=== PATIENT | male | born 1940 | race Hispanic/Latino ===

== ENCOUNTER 2022-02-19 12:20 | Outpatient (CLI) | payer MEDICARE, MEDICAID, SELFPAY ==
--- NOTE | 2022-02-19 | ECG_ITS ---
Measurements Intervals [place] Rate: 65 P: 41 MA: 176 QRS: -30 QRSD: 130 T: -15 QT: 410 QTc: 429 Interpretive Statements SINUS RHYTHM RIGHT BUNDLE BRANCH BLOCK ABNORMAL ECG Electronically Signed On 02-19-2022 12:58:03 CDT by Jaime Toledo D.O.
--- NOTE | ~2022-02-19 | XR_ITS ---
XR chest 2V DATE: 02/19/2022 13:14 INDICATION: Recent new cough TECHNIQUE: PA and lateral views COMPARISON: None FINDINGS: Bilateral basilar atelectasis and possible mild infiltrate. The lungs otherwise appear jose r. Bilateral apical thinning. Normal heart size. Mild aortic unfolding. No hilar or mediastinal enlargement. No pleural effusion or pulmonary vascular pneumothorax. Diffuse osteopenia. Mild dextroscoliosis of the thoracic spine. IMPRESSION: Bibasilar atelectasis and possible mild infiltrate Reviewed, dictated and finalized at location A.
== END 2022-02-19 12:21 | disposition home or self-care (01) ==
PROVIDERS: PCP Registered Nurse; Visit Provider Registered Nurse
DX: I45.10 Unspecified right bundle-branch block (principal); Z00.00 Encounter for general adult medical examination without abnormal findings
CPT/HCPCS: 71046; 93005

== ENCOUNTER 2022-03-11 11:52 | Emergency (ER) | payer MEDICARE, MEDICAID, SELFPAY ==
[2022-03-11] VITALS (21 sets, daily range): BP systolic 114–132; BP diastolic 73–90; PULSE 59–67; RESP 15–24; TEMP 36.8; O2SAT 94–98
--- NOTE | ~2022-03-11 | XR_ITS ---
EXAMINATION: XR chest 2V DATE: 03/11/2022 12:55 INDICATION: Weakness TECHNIQUE: frontal and lateral views of the chest were obtained. COMPARISON: Chest radiograph dated 02/19/2022 FINDINGS: Persistent mild streaky opacities in the bilateral lower lung zones and favor atelectasis/scarring ov er pneumonia. Additional chronic mild biapical pleural-parenchymal scarring. No pleural effusion or p neumothorax. The cardiomediastinal silhouette is normal. Mild to moderate degenerative skeletal azul es in the upper thoracic spine and bilateral shoulders. IMPRESSION: 1. Persistent mild streaky bibasilar opacities and favor atelectasis over pneumonia. Reviewed, dictated and finalized at location A. IMPRESSION: 1. Persistent mild streaky bibasilar opacities and favor atelectasis over pneum onia.
--- NOTE | ~2022-03-11 | CT_ITS ---
EXAMINATION: CT brain wo con DATE: 03/11/2022 12:51 INDICATION: Vertigo TECHNIQUE: Computed tomography (CT) of the head was performed without intravenous contrast. The mA wa s adjusted according to patient size. Iterative reconstruction technique was employed. Exam dose: 60 5.33 mGy-cm total exam DLP. COMPARISON: None FINDINGS: Bilateral vertebral artery, basilar artery and bilateral carotid siphon and supraclinoid in ternal carotid artery calcifications. Large frontotemporal area of encephalomalacia consistent with old cerebrovascular accident. Smaller right frontal and right anterior temporal infarcts. There is nonspecific diminished attenuation cerebral white matter, likely due to chronic small vessel ischemic changes. No intracranial mass lesion or hemorrhage, midline shift or mass effect. There is central and cortical cerebral and cerebellar atrophy. No subdural or epidural hematoma.. Right occipital bone defect is noted, with thinning and interruption. Of the occipital bone. Recommen d clinical correlation for possible prior surgical intervention at this location. No bone defect is n oted elsewhere at the cranial vault. The mastoid air cells and included paranasal sinuses are unremar kable. 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 Central and cortical cerebral and cerebellar atrophy. No acute intracranial finding Right occipital bone defect; recommend clinical correlation for prior surgical intervention at this l ocation Reviewed, dictated and finalized at Location A. Reviewed, dictated and finalized at location A. 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 Central and cortical cerebral and cerebellar atrophy. No acute intracranial finding Right occipital bone defect; recommend clinical correlation for prior surgical intervention at this location
--- NOTE | 2022-03-11 12:05 | ECG_ITS ---
Measurements Intervals [place] Rate: 66 P: 28 NE: 172 QRS: -21 QRSD: 131 T: -7 QT: 408 QTc: 430 Interpretive Statements SINUS RHYTHM BORDERLINE LEFT AXIS DEVIATION [QRS AXIS < -20] RIGHT BUNDLE BRANCH BLOCK [120+ ms QRS DURATION, UPRIGHT V1, 40+ ms S IN I/aVL/V4/V5/V6] ABNORMAL ECG COMPARED TO ECG 02/19/2022 12:55:36 NO SIGNIFICANT CHANGES Electronically Signed On 03-11-2022 12:29:28 CDT by Petros De La Rosa M.D.
[2022-03-11] MEDS: MECLIZINE HCL 25 MG TABLET PO (12:19)
[2022-03-11] MEDS: ONDANSETRON HCL ODT 4 MG TABLET PO (12:19)
[2022-03-11 12:23] LABS: Basophils Percent Auto 0.3 % (0.2-1.2); Eosinophils Absolute Auto 0.1 K/mm3 (0-0.3); Eosinophils Percent Auto 1.4 % (0-4.4); Hematocrit 45.4 % (42.0-52.0); Hemoglobin 14.8 g/dL (14.0-18.0); Immature Granulocyte Absolute 0.04 K/mm3 (0.00-0.031); Immature Granulocyte Percent A 0.6 % (0-0.5); Lymphocytes Absolute Auto 2.38 K/mm3 (0.9-3.2); Mean Corpuscular HGB Conc 32.6 g/dl (32-36); Mean Corpuscular Hemoglobin 30.6 pg (26-34); Mean Platelet Volume 9.7 fl (7.4-10.4); Monocytes Absolute Auto 0.6 K/mm3 (0.1-0.6); Neutrophils Absolute Auto 3.8 K/mm3 (1.3-6.7); Neutrophils Percent Auto 54.7 % (45.5-73.1); Platelet Count Result 269 k/mm3 (150-375); Red Blood Count 4.83 M/mm3 (4.6-6.20); Red Cell Distribution Width 14.7 % (11.5-14.5)
[2022-03-11 12:36] LABS: Alanine Aminotransferase 23 U/L (6-50); Albumin Level 4.2 g/dL (3.5-5.1); Alkaline Phosphatase 62 U/L (38-126); Anion Gap 7 mmol/L (8-16); Aspartate Amino Transferase 21 U/L (17-59); Bilirubin,Total 0.4 mg/dL (0.2-1.3); Blood Urea Nitrogen 16 mg/dL (9-20); Calcium 8.5 mg/dL (8.4-10.2); Carbon Dioxide 26 mmol/L (22-30); Chloride 109 mmol/L (98-107); Estimated CRCL calculation 70 ml/min; Estimated Glomerular Filt Rate > 60; Glucose 112 mg/dL (65-110); Potassium 4.2 mmol/L (3.4-5.0); Sodium 142 mmol/L (137-145)
[2022-03-11 12:47] LABS: Troponin I < 0.012 ng/mL (0.000-0.034)
--- NOTE | 2022-03-11 13:38 | ED.WEAKNESS ---
HPI - Weakness General Chief complaint: Weakness Stated complaint: dizzy, B/L LE weakness Time Seen by Provider: 03/11/22 11:56 History of Present Illness HPI Narrative: 81-year-old male who states that for the last 2 years, he has had chronic knee pain has been getting worse, to the point where he the last few weeks he feels like his legs are buckling, he also says that he had recently has been diagnosed with sciatica. He also feels for the last 2 weeks he has been having increased vertigo, and nausea. The nausea and vertigo seem to come and go, worse with walking or positions. No fevers or chills, chest pain, difficulty breathing, urinary retention, saddle anesthesia. No midline tenderness. Related Data Allergies Allergy/AdvReac Type Severity Reaction Status Date / Time No Known Allergies Allergy Unverified 07/31/19 13:37 Review of Systems Review of Systems: CONST: No fever. HEENT: Chronic right ear deafness C/V: No chest pain RESP: No cough GI: Reports nausea : No dysuria or urinary retention M/S: Bilateral knee pain SKIN: No rash. NEURO: Vertigo, some bilateral feet numbness PSYCH: [No depression] [facility] Past Medical History Medical History (Updated 03/11/22 @ 14:23 by Yesi Zavala MD) Chronic pain of both knees Sciatica Social History Social History (Updated 03/11/22 @ 17:06 by Yesi Zavala MD) Alcohol intake: current Alcohol use details: very infrequent and small amounts Exam Narrative: EXAMINATION OF ORGAN SYSTEMS/BODY AREAS: Constitutional: Vital signs per nursing GENERAL:[No acute distress, non-toxic appearing.] HEAD: Normal with no signs of head trauma. EYES: EOMI without nystagmus, conjunctiva normal ENT: Some cerumen left ear, normal TMs bilaterally LUNGS: Nonlabored breathing. HEART: [Regular rate and rhythm] ABD: [Soft], [nontender to palpation] EXT: Normal range of motion, good strength with flexion/extension of hip, knee, ankles, however on ambulation patient quite unsteady on his feet SKIN: [No rashes or lesions.] NEURO: [Alert and oriented x 3. No gross focal sensory or strength deficits.] Normal finger to nose bilaterally PSYCH: Normal affect Course Vital Signs Vital signs: Vital Signs Pulse Rate 65 03/11/22 12:11 Respiratory Rate 20 03/11/22 12:11 Temperature 98.2 F 03/11/22 12:23 Pulse Rate 59 L 03/11/22 15:45 Respiratory Rate 16 03/11/22 15:45 Blood Pressure 132/90 03/11/22 15:45 Pulse Oximetry 94 03/11/22 15:45 Oxygen Delivery Room Air 03/11/22 14:33 MDM - Weakness MDM Narrative Medical decision making narrative: 81-year-old male presents here with increasing difficulty ambulating, states that he also has been having intermittent vertigo and is unsteady on his feet due to his bilateral knee pain and recent diagnosis of sciatica. Vital stable, exam shows good strength of bilateral lower extremities and normal neurologic exam, however when I try to ambulate him he does seem quite unsteady on his feet, differential includes BPPV doubt CVA given the intermittent symptoms, possible chronic arthritis, doubt cauda equina without urinary symptoms or saddle anesthesia. Labs and imaging here unremarkable, he is given meclizine and Zofran here and states that the vertigo has resolved, however he is still having difficulty walking due to the weakness in his lower extremities, low concern for any acute fracture given the symptoms since ongoing for the past 2 years, patient would like to go home at this time however I do feel he would benefit from physical therapy as well as outpatient follow-up with MRI, PT/OT and case management will saw the patient here, and were able to provide him with a walker and an evaluation and have him set up for an appointment in the next few days. He is given return precautions and at this time is stable for discharge home. Lab Data Result diagrams: 03/11/22 12:18 03/11/22 12:18 Labs: Lab R
--- NOTE | 2022-03-11 14:01 | PCCCNOTE ---
Addendum entered by Eneida Martinez RN 03/11/22 19:20: Fax'd completed forms for walker to [facility] at [phone] Addendum entered by Eneida Martinez RN 03/11/22 16:38: Met with patient and family at bedside with [employer] [id number] [place], provided instructions about home health starting on Wednesday with [facility] and provided phone number. Bedside TIARRA Chauhan and ED Provider Dr. Zavala updated. Addendum entered by Eneida Martinez RN 03/11/22 16:31: PT/OT recommending home home therapy with a walker, walk[facility] obtained from [facility] and provided to patient, paperwork signed by patient and physician. [facility], Phone call received at [phone], Yesy at [facility] able to accept for skilled therapy for Wednesday. She noted the [place] speaking need and will use a child and family services worker to call patient to set up. Phone number for patient reference [phone], Addendum entered by Eneida Martinez RN 03/11/22 14:31: Met with patient and family at bedside, [employer] utilized for [employer] -Discussed role and request of physician to meet with patient about possible home therapy and possible walker. Advised that physical therapy and occupational therapy would work with the patient and give a recommendation, PT and OT at bedside, translation continued via [employer] for their services await recommendations. Original Note: Phone call received from ED Physician, Dr Zavala, requesting that patient be evaluated by physical therapy for a walker for home and home health physical therapy. Dr. Zavala states that patient does not have medical necessity for admission to the hospital. Called to PT leadDiogo who states that he will have Glenna come down to evaluate.
--- NOTE | 2022-03-11 14:12 | PC.NURSE ---
pt awaiting PT consult.
== END 2022-03-11 16:25 | disposition home or self-care (01) ==
PROVIDERS: Emergency Provider Emergency Medicine; PCP Registered Nurse
DX: M25.562 Pain in left knee (principal); M25.561 Pain in right knee; G89.29 Other chronic pain; M54.30 Sciatica, unspecified side; R42 Dizziness and giddiness; R94.31 Abnormal electrocardiogram [ECG] [EKG]
CPT/HCPCS: 36415; 70450; 71046; 80053; 84484; 85025; 93005; 97161; 97165; 99284; A9270

== ENCOUNTER 2024-03-20 13:00 | Outpatient (CLI) | payer MEDICARE, MEDICAID, SELFPAY | END 2024-03-20 13:01 | disposition home or self-care (01) | LOC: ANHAUDASC 13:01 | PROVIDERS: PCP Registered Nurse; Visit Provider Otolaryngology | DX: H90.3 Sensorineural hearing loss, bilateral (principal); H93.11 Tinnitus, right ear; H61.23 Impacted cerumen, bilateral | CPT/HCPCS: 92553; 92555; 92567 ==

== ENCOUNTER 2024-10-12 12:00 | Outpatient (CLI) | payer MEDICARE, MEDICAID, SELFPAY ==
--- NOTE | 2024-10-12 | ECG_ITS ---
Test Date: 2024-10-12 13:19:18 Measurements Intervals [place] Rate: 66 P: 3 [place]: 168 QRS: 97 QRSD: 126 T: 77 QT: 407 QTc: 428 Interpretive Statements SINUS RHYTHM RIGHT BUNDLE BRANCH BLOCK [120+ ms QRS DURATION, UPRIGHT V1, 40+ ms S IN I/aVL/V4/V5/V6] No previous ECG available for comparison Electronically Signed On 10-12-2024 15:20:33 [employer] by Jose Toure M.D.
--- NOTE | ~2024-10-12 | XR_ITS ---
EXAMINATION: XR chest 2V DATE: 10/12/2024 13:57 INDICATION: Dizziness and giddiness TECHNIQUE: PA and lateral views of the chest were obtained. COMPARISON: Chest radiograph dated 03/11/2022 FINDINGS: Opacities at the bilateral lung bases which could represent atelectasis or pneumonia. The cardiomedia stinal silhouette is normal. Visualized bones and soft tissues are unremarkable. IMPRESSION: 1. Opacities at the bilateral lung bases which could represent atelectasis or pneumonia. Reviewed, dictated and finalized at location B. [place] IMPRESSION: 1. Opacities at the bilateral lung bases which could represent atelectasis or p neumonia.
--- OUTSIDE RECORDS SUMMARY | 2024-10-19 03:15 | XMS_ITS | Data Portability ---
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 Plan of Treatment Reminders Order Date Submit Date Provider Last Modified By Organization Details Last Modified Time Details Appointments None recorde d. Lab gastroi ntestin al pathoge ns panel, culture , stool 2022 023 JANA [facility], [address], [address], [place], [address], 3 12:10:03 urinaly sis, complet e 2023 024 [facility], [address], [address], [place], [address], 4 10:54:25 lipid panel, serum [address] [facility] [facility], [address], [address], [place], [address], 4 10:54:03 CMP, serum or plasma 2023 024 [employer] [facility], [address], [address], [place], [address], 4 10:54:09 CBC w/ auto diff 2023 024 [facility], [address], [address], [place], [address], 4 10:54:14 TSH, ultra-s ensitiv e, serum 2023 024 nataliefort [employer] [facility], [address], [address], [place], [address], 4 10:54:19 HbA1c (hemogl obin A1c), blood 2023 024 [facility], [address], [address], [place], [address], 4 10:54:30 urinaly sis, complet e 2023 024 [facility], [address], [address], [place], [address], 4 15:21:19 lipid panel, serum 2023 024 alvarado [facility], [address], [address], [place], [address], 4 15:21:19 CMP, serum or plasma 2023 024 yaly [facility], [address], [address], [place], [address], 4 15:21:19 CBC w/ auto diff 2023 024 yarauz [facility], [address], [place], [address], 4 15:21:19 TSH, ultra-s ensitiv e, serum 2023 024 alvarado [facility], [address], [address], [place], [address], 4 15:21:19 HbA1c (hemogl obin A1c), blood 2023 024 alvarado [facility], [address], [address], [place], [address], 4 15:21:[address] referra l - 83 y/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 Surgeries None recorde d. Imaging XR, chest, 1 view 2023 024 [facility], [address] [place] [address], [address], 5 14:45:18 electro cardiog leah 2023 024 [facility], [address] [place] [address] [address], [address], 5 10:16:50 Medication Orders None recorde d. Patient TargetsNo targets recorded. Patient Instructions Encounter Date Encounter Id Patient Instructions Last Modified By Organization Details Last Modified Time 07/14/2023 [id number] Cuando desea baj ar de peso: Instrucciones de cuidado - [When You Want to Lose Weight: Care Instructions] [email or web address] Not available 07/14/2023 13:15:31 A healthy lifestyle: care instructions [email or web address] Not available 07/14/2023 13:15:31 P??rdida de la audici??n: instrucciones de cuidado - [hearing loss: care instructions] [email or web address] Not available 07/14/2023 13:15:31 hearing loss referral given yarauz Not available 07/14/2023 13:13:30 08/09/2024 [id number] vacuna contra la influenza (gripe): instrucciones de cuidado - [influenza (flu) vaccine: care instructions] [email or web address] Not available 08/09/2024 13:11:52 bloqueos card??acos: instrucciones de cuidado - [heart blocks: care instructions] [email or web address] Not available 08/09/2024 13:11:52 A healthy lifestyle: care instructions [email or web address] Not available 08/09/2024 13:10:29 P??rdida de la audici??n: instrucciones de cuidado - [hearing loss: care instructions] [email or web address] Not available 08/09/2024 13:10:29 mareos: instrucciones de cuidado - [dizziness: care instructions] [email or web address] Not available 08/09/2024 13:11:52 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, Encounter Date: 08/09/2024 Baker Apprentice Referral fo r Hearing loss Hearing loss Referring Physician: Annie Cortes [facility], Encounter Date: 08/09/2024 Results Created Date Observation Date Name Description Value Unit Range Abnormal Flag Note LastModifiedBy Organization Detail LastModifiedTime 03/03/2003/03/2023 LIPID PANEL cholesterol, total 148.9 mg/dL 140.0- 200.0 Not Available [facility] [address] [place], [address], 03/03/2023 22:07:27 03/03/20 23 03/03/2023 LIPID PANEL triglyceride s 195 mg/dL <=150 above high normal Not Available [facility] [address] [place], [address], 03/03/2023 22:07:27 03/03/20 23 03/03/2023 LIPID PANEL HDL cholesterol 29.0 mg/dL 40.0-1 00.0 below low normal Not Available [facility] [address] [place], [address], 03/03/2023 22:07:27 03/03/20 23 03/03/2023 LIPID PANEL VLDL cholesterol mike 39.00 mg/dL 5.00-4 0.00 Not Available [facility] [address] [place], [address], 03/03/2023 22:07:27 03/03/20 23 03/03/2023 LIPID PANEL LDL chol calc ([facility]) 86.4 mg/dL 0.0-99 .0 Not Available [facility] [address] [place], [address], 03/03/2023 22:07:27 03/03/20 23 03/03/2023 COMP. METAB OLIC PANEL (14) glucose 104 mg/dL 65-99 above high normal ANION GP 16.0 mmol/ L N OSMOL 281.0 mOsM/ L N REFER ENCE RANGE : 275.0 -301. 0 Not Available [facility] [address] [place], [address], 03/03/2023 22:07:28 03/03/20 23 03/03/2023 COMP. METAB OLIC PANEL (14) BUN 15 mg/dL 8-26 Not Available [facility] [address] [place], [address], 03/03/2023 22:07:28 03/03/20 23 03/03/2023 COMP. METAB OLIC PANEL (14) creatinine 0.95 mg/dL 0.50-1 .40 Not Available [facility] [address] [place], [address], 03/03/2023 22:07:28 03/03/20 23 03/03/2023 COMP. METAB OLIC PANEL (14) eGFR 81 mL/mi n/1.7 3 >=60 Not Available [facility] [address] [place], [address], 03/03/2023 22:07:28 03/03/20 23 03/03/2023 COMP. METAB OLIC PANEL (14) BUN/creatini ne ratio 16.0 Not Available [facility] Department [address] [place], [address], 03/03/2023 22:07:28 03/03/20 23 03/03/2023 COMP. METAB OLIC PANEL (14) sodium 140.0 mmol/ L 136.0- 144.0 Not Available [facility] Department [address] [place], [address], 03/03/2023 22:07:28 03/03/20 23 03/03/2023 COMP. METAB OLIC PANEL (14) potassium 4.2 mmol/ L 3.5-5. 3 Not Available [facility] [address] [place], [address], 03/03/2023 22:07:28 03/03/20 23 03/03/2023 COMP. METAB OLIC PANEL (14) chloride 104 mmol/ l 101-11 1 Not Available [facility] [address] [place], [address], 03/03/2023 22:07:28 03/03/20 23 03/03/2023 COMP. METAB OLIC PANEL (14) carbon dioxide, total 23.4 mmol/ L 21.0-3 2.0 Not Available [facility] [address] [place], [address], 03/03/2023 22:07:28 03/03/20 23 03/03/2023 COMP. METAB OLIC PANEL (14) calcium 8.9 mg/dL 8.2-10 .0 Not Available [facility] Department [address] [place] [address], [address], 03/03/2023 22:07:28 03/03/20 23 03/03/2023 COMP. METAB OLIC PANEL (14) protein, total 6.9 g/dL 6.7-8. 2 Not Available [facility] [address] [place], [address], 03/03/2023 22:07:28 03/03/20 23 03/03/2023 COMP. METAB OLIC PANEL (14) albumin 4.0 g/dL 3.5-5. 5 Not Available [facility] [address] [place], [address], 03/03/2023 22:07:28 03/03/20 23 03/03/2023 COMP. METAB OLIC PANEL (14) globulin, total 2.9 g/dL 1.5-4. 5 Not Available [facility] [address] [place], [address], 03/03/2023 22:07:28 03/03/20 23 03/03/2023 COMP. METAB OLIC PANEL (14) A/G ratio 1.0 Not Available [facility] Department [address] [place], [address], 03/03/2023 22:07:28 03/03/20 23 03/03/2023 COMP. METAB OLIC PANEL (14) bilirubin, total 0.3 mg/dL 0.0-1. 2 Not Available [facility] [address] [place], [address], 03/03/2023 22:07:28 03/03/20 23 03/03/2023 COMP. METAB OLIC PANEL (14) alkaline phosphatase 70.7 IU/L 42.0-1 21.0 Not Available [facility] [address] [place], [address], 03/03/2023 22:07:28 03/03/20 23 03/03/2023 COMP. METAB OLIC PANEL (14) AST (SGOT) 16.2 U/L 10.0-4 2.0 Not Available [facility] [address] [place], [address], 03/03/2023 22:07:28 03/03/20 23 03/03/2023 COMP. METAB OLIC PANEL (14) ALT (SGPT) 15.9 U/L 10.0-6 0.0 Not Available [facility] [address] [place], [address], 03/03/2023 22:07:28 03/03/20 23 03/03/2023 URINA LYSIS , COMPL ETE specific gravity Commen t 1.001- 1.035 >=1.0 30 Not Available [facility] [address] [place], [address], 03/03/2023 22:07:29 03/03/20 23 03/03/2023 URINA LYSIS , COMPL ETE pH 5.5 5.0-7. 0 Not Available [facility] [address] [place], [address], 03/03/2023 22:07:29 03/03/20 23 03/03/2023 URINA LYSIS , COMPL ETE urine-color YELLOW yellow Not Available [facility] Department [address], [place], [address], 03/03/2023 22:07:29 03/03/20 23 03/03/2023 URINA LYSIS , COMPL ETE appearance CLEAR Not Available [facility] [address], [place], [address], 03/03/2023 22:07:29 03/03/20 23 03/03/2023 URINA LYSIS , COMPL ETE WBC esterase Commen t NEGAT AURELIA Not Available [facility] Department [address], [place], [address], 03/03/2023 22:07:29 03/03/20 23 03/03/2023 URINA LYSIS , COMPL ETE protein Commen t NEGAT AURELIA Not Available [facility] Department [address], [place], [address], 03/03/2023 22:07:29 03/03/20 23 03/03/2023 URINA LYSIS , COMPL ETE glucose Commen t NEGAT AURELIA Not Available [facility] [address], [place], [address], 03/03/2023 22:07:29 03/03/20 23 03/03/2023 URINA LYSIS , COMPL ETE ketones TRACE abnormal Not Available [facility] Department [address], [place], [address], 03/03/2023 22:07:29 03/03/20 23 03/03/2023 URINA LYSIS , COMPL ETE occult blood Commen t NEGAT AURELIA Not Available [facility] Department [address], [place], [address], 03/03/2023 22:07:29 03/03/20 23 03/03/2023 URINA LYSIS , COMPL ETE bilirubin Commen t NEGAT AURELIA Not Available [facility] [address] [place], [address], 03/03/2023 22:07:29 03/03/20 23 03/03/2023 URINA LYSIS , COMPL ETE urobilinogen ,semi-qn 0.2 eu/dL <=1.0 Not Available [facility] Department [address] [facility], [place], [address], 03/03/2023 22:07:29 03/03/20 23 03/03/2023 URINA LYSIS , COMPL ETE nitrite, urine Commen t negati ve NEGAT AURELIA Not Available [facility] Department [address] [place], [address], 03/03/2023 22:07:29 03/03/20 23 03/03/2023 CBC WITH DIFFE RENTI AL/PL ATELE T WBC 8.4 K/uL 3.4-10 .8 Not Available [facility] [address] [place], [address], 03/03/2023 22:07:29 03/03/20 23 03/03/2023 CBC WITH DIFFE RENTI AL/PL ATELE T RBC 4.8 M/uL 4.5-6. 3 Not Available [facility] [address] [place], [address], 03/03/2023 22:07:29 03/03/20 23 03/03/2023 CBC WITH DIFFE RENTI AL/PL ATELE T hemoglobin 14.2 g/dL 13.5-1 7.5 Not Available [facility] [address] [place], [address], 03/03/2023 22:07:29 03/03/20 23 03/03/2023 CBC WITH DIFFE RENTI AL/PL ATELE T hematocrit 44.9 % 40.0-5 2.0 Not Available [facility] [address] [place], [address], 03/03/2023 22:07:29 03/03/20 23 03/03/2023 CBC WITH DIFFE RENTI AL/PL ATELE T MCV 94 fL 80-95 Not Available [facility] [address] [place], [address], 03/03/2023 22:07:29 03/03/20 23 03/03/2023 CBC WITH DIFFE RENTI AL/PL ATELE T MCH 30 pg 27-32 Not Available [facility] [address] [place], [address], 03/03/2023 22:07:29 03/03/20 23 03/03/2023 CBC WITH DIFFE RENTI AL/PL ATELE T MCHC 32 g/dL 32-36 Not Available [facility] [address] [place], [address], 03/03/2023 22:07:29 03/03/20 23 03/03/2023 CBC WITH DIFFE RENTI AL/PL ATELE T RDW 13.9 % 11.5-1 4.5 Not Available [facility] [address] [place], [address], 03/03/2023 22:07:29 03/03/20 23 03/03/2023 CBC WITH DIFFE RENTI AL/PL ATELE T platelets 299 K/uL 155-37 9 MPV 10.3 FL 8.9-1 2.7 N Not Available [facility] [address] [place], [address], 03/03/2023 22:07:29 03/03/20 23 03/03/2023 CBC WITH DIFFE RENTI AL/PL ATELE T neutrophils 58.4 % 40.0-7 4.0 Not Available [facility] [address] [place], [address], 03/03/2023 22:07:29 03/03/20 23 03/03/2023 CBC WITH DIFFE RENTI AL/PL ATELE T lymphs 30.6 % 14.0-4 6.0 Not Available [facility] [address] [place], [address], 03/03/2023 22:07:29 03/03/20 23 03/03/2023 CBC WITH DIFFE RENTI AL/PL ATELE T monocytes 8.9 % 4.0-12 .0 Not Available [facility] [address] [place], [address], 03/03/2023 22:07:29 03/03/20 23 03/03/2023 CBC WITH DIFFE RENTI AL/PL ATELE T eos 1 % 0-5 Not Available [facility] [address] [place], [address], 03/03/2023 22:07:29 03/03/20 23 03/03/2023 CBC WITH DIFFE RENTI AL/PL ATELE T basos 0.1 % 0.0-1. 0 Not Available [facility] [address] [place], [address], 03/03/2023 22:07:29 03/03/20 23 03/03/2023 CBC WITH DIFFE RENTI AL/PL ATELE T neutrophils (absolute) 4.9 K/uL 1.4-7. 0 Not Available [facility] Department [address] [place], [address], 03/03/2023 22:07:29 03/03/20 23 03/03/2023 CBC WITH DIFFE RENTI AL/PL ATELE T lymphs (absolute) 2.6 K/uL 0.7-3. 1 Not Available [facility] Department [address] [place], [address], 03/03/2023 22:07:29 03/03/20 23 03/03/2023 CBC WITH DIFFE RENTI AL/PL ATELE T monocytes(ab solute) 0.7 K/uL 0.1-0. 9 Not Available [facility] Department [address] [place], [address], 03/03/2023 22:07:29 03/03/20 23 03/03/2023 CBC WITH DIFFE RENTI AL/PL ATELE T eos (absolute) 0.1 K/uL 0.0-0. 4 Not Available [facility] Department [address] [place], [address], 03/03/2023 22:07:29 03/03/20 23 03/03/2023 CBC WITH DIFFE RENTI AL/PL ATELE T baso (absolute) 0.0 K/uL 0.0-0. 3 Not Available [facility] Department [address] [place] [address], [address], 03/03/2023 22:07:29 03/03/20 23 03/03/2023 CBC WITH DIFFE RENTI AL/PL ATELE T immature granulocytes 0.6 % Not Available [facility] Department [address] [place], [address], 03/03/2023 22:07:29 03/03/20 23 03/03/2023 CBC WITH DIFFE RENTI AL/PL ATELE T immature grans (abs) 0.1 K/uL Not Available [facility] Department [address] [place], [address], 03/03/2023 22:07:29 03/03/20 23 03/03/2023 CBC WITH DIFFE RENTI AL/PL ATELE T NRBC 0 % Not Available [facility] [address] [place], [address], 03/03/2023 22:07:29 03/03/20 23 03/04/2023 HEMOG LOBIN A1C hemoglobin A1C 5.9 % 4.8-5. 6 above high normal Predi abete s: 5.7 - 6.4 Diabe liz: >6.4 Glyce jake contr ol for adult s with diabe liz: <7.0 Not Available [facility] ([facility]) [address], [place], [address], 03/04/2023 17:09:34 03/03/20 23 03/04/2023 TSH TSH 3.010 uIU/m L 0.450- 4.500 Not Available [facility] ([facility]) [address] [facility], [place], [address], 03/04/2023 17:09:35 03/03/20 23 03/03/2023 MICRO SCOPI C EXAMI NATIO N WBC 0-5 Not Available [facility] Department [address] [place] [address], [address], 03/03/2023 22:07:28 03/03/20 23 03/03/2023 MICRO SCOPI C EXAMI NATIO N RBC 0-2 Not Available [facility] Department [address] [place], [address], 03/03/2023 22:07:28 03/03/20 23 03/03/2023 MICRO SCOPI C EXAMI NATIO N epithelial cells (non renal) 1+ Not Available [facility] Department [address] [place], [address], 03/03/2023 22:07:28 03/03/20 23 03/03/2023 MICRO SCOPI C EXAMI NATIO N bacteria TRACE abnormal Not Available [facility] Department [address] [place] [address], [address], 03/03/2023 22:07:28 03/12/20 23 03/13/2023 STOOL CULTU RE salmonella/s higella screen - Test not perfo rmed. No stool cultu re trans port devic e recei rocio. Not Available [facility] ([facility]) [address] [facility] [facility], [place], [address], 03/13/2023 12:10:03 03/12/20 23 03/13/2023 STOOL CULTU RE campylobacte r culture - Test not perfo rmed. No stool cultu re trans port devic e recei rocio. Not Available [facility] ([facility]) [address] [place], [address], 03/13/2023 12:10:03 03/12/20 23 03/13/2023 STOOL CULTU RE E coli shiga toxin EIA - Test not perfo rmed. No stool cultu re trans port devic e recei rocio. Not Available [facility] ([facility]) [address] [place], [address], 03/13/2023 12:10:03 03/12/20 23 03/13/2023 SPECI MEN STATU S REPOR T specimen status report TNP Test not perfo rmed. No stool cultu re trans port devic e recei rocio. TEST: [id number] Stool Cultu re Not Available [facility] ([facility]) [address] [place], [address], 03/13/2023 12:10:02 08/10/20 24 08/11/2024 LIPID PANEL cholesterol, total 174 mg/dL 100-19 9 Not Available [facility] ([facility]) [address] [place], [address], 08/11/2024 08:30:07 08/10/20 24 08/11/2024 LIPID PANEL triglyceride s 138 mg/dL 0-149 Not Available [facility] ([facility]) [address] [place], [address], 08/11/2024 08:30:07 08/10/20 24 08/11/2024 LIPID PANEL HDL cholesterol 33 mg/dL >39 below low normal Not Available [facility] ([facility]) [address] [place], [address], 08/11/2024 08:30:07 08/10/20 24 08/11/2024 LIPID PANEL VLDL cholesterol mike 25 mg/dL 5-40 Not Available [facility] ([facility]) [address] [place], [address], 08/11/2024 08:30:07 08/10/20 24 08/11/2024 LIPID PANEL LDL chol calc ([facility]) 116 mg/dL 0-99 above high normal Not Available [facility] ([facility]) [address] [place], [address], 08/11/2024 08:30:07 08/10/20 24 08/11/2024 COMP. METAB OLIC PANEL (14) glucose 92 mg/dL 70-99 Not Available [facility] ([facility]) [address] [place], [address], 08/11/2024 08:30:08 08/10/20 24 08/11/2024 COMP. METAB OLIC PANEL (14) BUN 14 mg/dL 8-27 Not Available [facility] ([facility]) [address] [place], [address], 08/11/2024 08:30:08 08/10/20 24 08/11/2024 COMP. METAB OLIC PANEL (14) creatinine 0.93 mg/dL 0.76-1 .27 Not Available [facility] ([facility]) [address] [place], [address], 08/11/2024 08:30:08 08/10/20 24 08/11/2024 COMP. METAB OLIC PANEL (14) eGFR 82 mL/mi n/1.7 3 >59 Not Available [facility] ([facility]) [address] [place], [address], 08/11/2024 08:30:08 08/10/20 24 08/11/2024 COMP. METAB OLIC PANEL (14) BUN/creatini ne ratio 15 10-24 Not Available [facility] ([facility]) [address] [facility] [place], [address], 08/11/2024 08:30:08 08/10/20 24 08/11/2024 COMP. METAB OLIC PANEL (14) sodium 140 mmol/ L 134-14 4 Not Available [facility] ([facility]) [address] [place], [address], 08/11/2024 08:30:08 08/10/20 24 08/11/2024 COMP. METAB OLIC PANEL (14) potassium 4.4 mmol/ L 3.5-5. 2 Not Available [facility] ([facility]) [address] [place], [address], 08/11/2024 08:30:08 08/10/20 24 08/11/2024 COMP. METAB OLIC PANEL (14) chloride 104 mmol/ L 96-106 Not Available [facility] ([facility]) [address] [place], [address], 08/11/2024 08:30:08 08/10/20 24 08/11/2024 COMP. METAB OLIC PANEL (14) carbon dioxide, total 24 mmol/ L 20-29 Not Available [facility] ([facility]) [address] [facility] [place], [address], 08/11/2024 08:30:08 08/10/20 24 08/11/2024 COMP. METAB OLIC PANEL (14) calcium 8.8 mg/dL 8.6-10 .2 Not Available [facility] ([facility]) [address] [facility] [place], [address], 08/11/2024 08:30:08 08/10/20 24 08/11/2024 COMP. METAB OLIC PANEL (14) protein, total 7.2 g/dL 6.0-8. 5 Not Available [facility] ([facility]) [address] [facility], [place], [address], 08/11/2024 08:30:08 08/10/20 24 08/11/2024 COMP. METAB OLIC PANEL (14) albumin 4.2 g/dL 3.7-4. 7 Not Available [facility] ([facility]) [address], [place], [address], 08/11/2024 08:30:08 08/10/20 24 08/11/2024 COMP. METAB OLIC PANEL (14) globulin, total 3.0 g/dL 1.5-4. 5 Not Available [facility] ([facility]) [address] [place], [address], 08/11/2024 08:30:08 08/10/20 24 08/11/2024 COMP. METAB OLIC PANEL (14) bilirubin, total 0.7 mg/dL 0.0-1. 2 Not Available [facility] ([facility]) [address], [place], [address], 08/11/2024 08:30:08 08/10/20 24 08/11/2024 COMP. METAB OLIC PANEL (14) alkaline phosphatase 84 IU/L 44-121 Not Available [facility] ([facility]) [address] [place], [address], 08/11/2024 08:30:08 08/10/20 24 08/11/2024 COMP. METAB OLIC PANEL (14) AST (SGOT) 20 IU/L 0-40 Not Available [facility] ([facility]) [address] [place], [address], 08/11/2024 08:30:08 08/10/20 24 08/11/2024 COMP. METAB OLIC PANEL (14) ALT (SGPT) 26 IU/L 0-44 Not Available [facility] ([facility]) [address] [place], [address], 08/11/2024 08:30:08 08/10/20 24 08/11/2024 MICRO SCOPI C EXAMI NATIO N WBC 0-5 /hpf 0-5 Not Available [facility] ([facility]) [address] [facility], [place], [address], 08/11/2024 08:30:09 08/10/20 24 08/11/2024 MICRO SCOPI C EXAMI NATIO N RBC 0-2 /hpf 0-2 Not Available [facility] ([facility]) [address] [facility], [place], [address], 08/11/2024 08:30:09 08/10/20 24 08/11/2024 MICRO SCOPI C EXAMI NATIO N epithelial cells (non renal) None seen /hpf 0-10 Not Available [facility] ([facility]) [address] [facility], [place], [address], 08/11/2024 08:30:09 08/10/20 24 08/11/2024 MICRO SCOPI C EXAMI NATIO N casts None seen /lpf nonese en Not Available [facility] ([facility]) [address] [facility], [place], [address], 08/11/2024 08:30:09 08/10/20 24 08/11/2024 MICRO SCOPI C EXAMI NATIO N bacteria None seen nonese en/few Not Available [facility] ([facility]) [address] [facility], [place], [id number], 08/11/2024 08:30:09 08/10/20 24 08/11/2024 HEMOG LOBIN A1C hemoglobin A1C 6.0 % 4.8-5. 6 above high normal Predi abete s: 5.7 - 6.4 Diabe liz: >6.4 Glyce jake contr ol for adult s with diabe liz: <7.0 Not Available [facility] ([facility]) [address] [facility], [place], [id number], 08/11/2024 08:30:10 08/10/20 24 08/11/2024 URINA LYSIS , COMPL ETE specific gravity 1.020 1.005- 1.030 Not Available [facility] ([facility]) [address] [facility], [place], [place], [address], 08/11/2024 08:30:11 08/10/20 24 08/11/2024 URINA LYSIS , COMPL ETE pH 5.5 5.0-7. 5 Not Available [facility] ([facility]) [address] [facility], [place], [address], 08/11/2024 08:30:11 08/10/2008/11/2024 URINA LYSIS , COMPL ETE urine-color YELLOW yellow Not Available [facility] ([facility]) [address] [facility], [place], [address], 08/11/2024 08:30:11 08/10/20 24 08/11/2024 URINA LYSIS , COMPL ETE appearance CLEAR clear Not Available [facility] ([facility]) [address] [place], [address], 08/11/2024 08:30:11 08/10/20 24 08/11/2024 URINA LYSIS , COMPL ETE WBC esterase 1+ negati ve abnormal Not Available [facility] ([facility]) [address] [place], [address], 08/11/2024 08:30:11 08/10/20 24 08/11/2024 URINA LYSIS , COMPL ETE protein NEGATI VE negati ve/tra ce Not Available [facility] ([facility]) [address] [place], [address], 08/11/2024 08:30:11 08/10/20 24 08/11/2024 URINA LYSIS , COMPL ETE glucose NEGATI VE negati ve Not Available [facility] ([facility]) [address] [place], [address], 08/11/2024 08:30:11 08/10/20 24 08/11/2024 URINA LYSIS , COMPL ETE ketones NEGATI VE negati ve Not Available [facility] ([facility]) [address] [place], [address], 08/11/2024 08:30:11 08/10/20 24 08/11/2024 URINA LYSIS , COMPL ETE occult blood NEGATI VE negati ve Not Available [facility] ([facility]) [address] [place], [address], 08/11/2024 08:30:11 08/10/20 24 08/11/2024 URINA LYSIS , COMPL ETE bilirubin NEGATI VE negati ve Not Available [facility] ([facility]) [address] [place], [address], 08/11/2024 08:30:11 08/10/20 24 08/11/2024 URINA LYSIS , COMPL ETE urobilinogen ,semi-qn 0.2 mg/dL 0.2-1. 0 Not Available [facility] ([facility]) [address] [place], [address], 08/11/2024 08:30:11 08/10/20 24 08/11/2024 URINA LYSIS , COMPL ETE nitrite, urine NEGATI VE negati ve Not Available [facility] ([facility]) [address] [place], [address], 08/11/2024 08:30:11 08/10/20 24 08/11/2024 URINA LYSIS , COMPL ETE microscopic examination SEE BELOW: Micro scopi c was indic ated and was perfo rmed. Not Available [facility] ([facility]) [address] [place], [address], 08/11/2024 08:30:11 08/10/20 24 08/11/2024 TSH TSH 2.560 uIU/m L 0.450- 4.500 Not Available [facility] ([facility]) [address] [place], [address], 08/11/2024 08:30:13 08/10/20 24 08/11/2024 CBC WITH DIFFE RENTI AL/PL ATELE T WBC 8.8 x10e3 /uL 3.4-10 .8 Not Available [facility] ([facility]) [address] [place], [address], 08/11/2024 08:30:14 08/10/20 24 08/11/2024 CBC WITH DIFFE RENTI AL/PL ATELE T RBC 5.02 x10e6 /uL 4.14-5 .80 Not Available [facility] ([facility]) [address] [place], [address], 08/11/2024 08:30:14 08/10/20 24 08/11/2024 CBC WITH DIFFE RENTI AL/PL ATELE T hemoglobin 15.5 g/dL 13.0-1 7.7 Not Available [facility] ([facility]) [address] [place], [address], 08/11/2024 08:30:14 08/10/20 24 08/11/2024 CBC WITH DIFFE RENTI AL/PL ATELE T hematocrit 47.0 % 37.5-5 1.0 Not Available [facility] ([facility]) [address] [place], [address], 08/11/2024 08:30:14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 is not tasking any medications.He agrees to influenza vaccination. Has no contraindications. JT Zhou Attn: [address] [place], [address], [facility] 08/09/2024 13:17:44
--- OUTSIDE RECORDS SUMMARY | 2024-10-19 03:15 | XMS_ITS | CONTINUITY OF CARE DOCUMENT ---
Author Name madiha cleary Address Unknown Organization [facility] Address [address] [place] [address] Phone [phone] Care Team Providers Care Residential Lawn Specialist Name Role Phone Marion IBANEZ, Andrea Unavailable ELFEGO UNDERWEAR FINISHER, YETZENIA Unavailable ELFEGO UNDERWEAR FINISHER, YETZENIA Unavailable [phone] PROBLEMS Condition Status Date Provider Notes CAD active Andrea Schultz MD Screening active Andrea Schultz MD Deteriorating hearing active Andrea Schultz MD Hypertriglyceridemia active Andrea Agee Hyperlipidemia active Andrea Schultz MD PREDIABETES active Andrea Schultz MD Inferior myocardial infarcti on;ON EKG, PT UNAWARE active Andrea Schultz MD 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 Andrea Schultz MD Exposure to SARS-associated coronavirus;had vaccine active Andrea Schultz MD ENCOUNTERS Date Type Provider Location Encounter Diag nosis 04/30 - 04/30 In-person encounter Office Visit Andrea Schultz MD [place] [facility] Exposure to SARS-associated coronavirus; had vaccineRBBB with left anterior fascicular blockInferior myocardial infarction;ON EKG, PT UNAWAREPREDIABETESHyperlipidemiaHypertriglyceridemia Deteriorating hearing VITAL SIGNS Date Observation Value Provider weight E&M 177 [lb_av] Roger Luong al Body Mass Index (Ratio) 28.57 kg/m2 Christopher Schultz MD blood pressure, cuff size large Júnior vasquez Bandardbclara blood pressure, diastolic 76 mm[Hg] Júnior rrabril Bandardbclara blood pressure, systolic 127 mm[Hg] Tobias grover Arvindsukhclara oxygen saturation, oximetry 96 % Debora Calderónjabier respiratory rate E&M 14 /min Debora Tipton fidelenesharifaeldricco pulse rate 67 /min Debora Samuelsmary janedbnelson lder weight E&M 177 [lb_av] Debora Farrell lder height E&M 66 [in_i] Debora Ivannelson er HISTORY OF MEDICATION USE Medication Status Instructions Dates Provider Indications Com ments aspirin 81 mg tablet,chewable active TAKE 1 TABLET BY MOUTH EVERY DAY Andrea Schultz MD Crestor 20 mg tablet active TAKE 1 TABLET BY MOUTH EVERY DAY Andrea Schultz MD metformin 500 mg tablet extended release 24hr active 1 tablet by mouth every morning Andrea Schultz MD SOCIAL HISTORY Date Observation Value Provider social history E&M S moking History: [place] jarvis is a former smoker. Andrea Schultz MD social history reviewed E&M revi ewed - no changes required Andrea Schultz MD smoking status Former smoker Debora Moncho [facility] INSURANCE PROVIDERS Payer name Policy type / Coverage type [place] [employer] party ID AARP MEDICARE ADVANTAGE PLAN 2 HMO O [id number] [facility] Medicaid 2 [id number] ADVANCE DIRECTIVES Name Date DISCUSSED - NO DECISION MADE TREATMENT PLAN Date Name Performer [id number],C,scroe 2 Renita Schultz MD [id number],C,neg ehco Christopher Schultz MD [id number],S, Andrea lee MD [id number],S, Andrea lee MD [id number],S, Andrea lee MD [id number],S, Andrea lee MD [id number],S, Andrea lee MD [id number],S,6 Andrea oconnell MD :scroe 2 Andrea Schultz MD :neg ehco Andrea Schultz MD Cardiology Andrea Schultz MD Cardiology Andrea Schultz MD Cardiology Andrea Schultz MD Cardiology Andrea Schultz MD Cardiology Andrea Schultz MD Cardiology:6 Andrea Schultz MD Date Name Stress Routine Holter Monitor [address], Coronary Calcium Score HISTORY OF PROCEDURES Procedure Date Procedure Name Provider Procedure Notes S tatus CT- Coronary CA score Andrea Schultz MD completed EKG Andrea Schultz MD complete d
--- OUTSIDE RECORDS SUMMARY | 2024-10-19 03:15 | XMS_ITS | Clinical Summary ---
Author Organization [facility] Address [address] [address] Phone Care Team Providers Care Grapple Operator Name Role Phone Annie Cortes APRN Primary Care Provider [phone] Allergies No known active allergies Medications No known medications Active Problems No known active problems Immunizations Immunization Administration Dates Next Due Influenza Vaccine greater than 3 yrs 07/22/2015 Family History Medical History Relation Name Comments Heart Disease Other Relation Name Status Comments Other Social History Tobacco Use Types Packs/Day Years Used Date Smoking Tobacco: Never Alcohol Use Standard Drinks/Week Comments No 0 (1 standard drink = 0.6 oz pur e alcohol) Sex and Gender Information Value Date Recorded Sex Assigned at Not on file Legal Sex Male 9:21 PM CDT Gender Identity Not on file Sexual Orientation Not on file Last Filed Vital Signs Vital Sign Reading Time Taken Comments Blood Pressure 132/80 08/05/2015 3:10 PM [employer] CHIEF Pulse 80 08/05/2015 3:10 PM [employer]IE[employer] Temperature - - Respiratory Rate - - Oxygen Saturation - - Inhaled Oxygen Concentration - - Weight 78 kg (172 lb) 08/05/2015 3:10 PM [employer] CHIEF Height 165.1 cm (5' 5 ) 08/05/2015 3:10 PM [employer] CHIEF Body Mass Index 28.62 08/05/2015 3:10 PM [employer] CHIEF Plan of Treatment Health Maintenance Due Date Last Done Comments Hepatitis C Virus (HCV) Screening 1940 TdaP Immunization 1940 Pneumococcal Immunization (5 0+ years) (1 of 1 - PCV) 1992 Zoster Immunization (1 of 2) 1992 Respiratory Syncytial Virus (RSV) Immunization (Adult) (1 - 1-dose 75+ series) 2017 Influenza Immunization (#1) 2024 07/22/2015 SARS-COV-2 Immunization (2023- season) 2024 Hepatitis B Immunization Aged Out No longer eligible based on patient's age to complete this topic Meningococcal Immunization (ACWY) Aged Out No longer eligible based on patient's age to complete this topic Rotavirus Immunization Aged Out No lo nger eligible based on patient's age to complete this topic Insurance MEDICARE [place]ID [place] Care Teams Grapple Operator Relationship Specialty Start Date End Date Annie Cortes APRN [address] [place] [address] PCP - General Advanced Practice Nurse 08/05/15
== END 2024-10-12 12:01 | disposition home or self-care (01) ==
PROVIDERS: PCP Registered Nurse; Visit Provider Registered Nurse
DX: J82.89 Other pulmonary eosinophilia, not elsewhere classified (principal); I45.10 Unspecified right bundle-branch block
CPT/HCPCS: 71046; 93005